=== PATIENT | female | born 1965 | race Two or more races ===

== ENCOUNTER 2017-02-02 13:08 | Emergency (ER) | payer OTHER ==
[2017-02-02 13:15] VITALS: BP 118/75; PULSE 66; RESP 14; TEMP 98.1; O2SAT 97
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
== END 2017-02-02 14:14 | disposition home or self-care (01) ==
LOC: CED 13:08
DX: S09.90XA Unspecified injury of head, initial encounter (principal); V43.52XA Car driver injured in collision with other type car in traffic accident, initial encounter; Y92.410 Unspecified street and highway as the place of occurrence of the external cause
CPT/HCPCS: G0463-PO